=== PATIENT | male | born 1955 | race Hispanic/Latino ===

== ENCOUNTER 2017-03-14 05:04 | Inpatient (IN) | payer OTHER ==
[2017-03-14 05:38] LABS: BASO % 0.7 % (0.0-2.0); EOS # 0.3 K/uL (0.0-0.7); EOS % 4.1 % (0.0-4.0); LYMPH # 2.4 K/uL (1.0-4.3); LYMPH % 38.3 % (20.0-40.0); MEAN CELL VOLUME 95.3 fL (80.0-94.0); MEAN CORPUSCULAR HGB CONC 34.6 g/dL (33.0-37.0); MEAN PLATELET VOLUME 8.6 fL (7.2-11.7); MONO # 0.7 K/uL (0.0-0.8); MONO % 11.5 % (0.0-10.0); NRBC % 0.1 % (0.0-2.0); RED CELL DISTRIBUTION WIDTH 12.5 % (11.5-14.5); WHITE BLOOD COUNT 6.4 K/uL (4.8-10.8)
[2017-03-14] MEDS ORDERED: Aspirin 325 mg EC Tablets PO ONE (05:39)
[2017-03-14 05:49] LABS: CHLORIDE 95 mmol/L (98-107); POTASSIUM 3.4 mmol/L (3.6-5.2); SODIUM 132 mmol/L (132-148)
[2017-03-14 05:51] LABS: GFR AFRICAN-AMERICAN > 60
[2017-03-14 05:52] LABS: ALB/GLOB RATIO 1.1 (1.0-2.1); ALKALINE PHOSPHATASE 112 U/L (38-126); ALT/SGPT 97 U/L (21-72); AST/SGOT 44 U/L (17-59); BILIRUBIN,TOTAL 0.4 mg/dL (0.2-1.3); BLOOD UREA NITROGEN 23 mg/dL (9-20); CARBON DIOXIDE 26 mmol/L (22-30); GLUCOSE,RANDOM 133 mg/dL (75-110); TOTAL PROTEIN 8.6 g/dL (6.3-8.3)
[2017-03-14 05:53] LABS: CALCIUM 9.4 mg/dl (8.6-10.4)
--- NOTE | 2017-03-14 06:20 | C.PDOC ---
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 Patient states the episode lasted several seconds but notes for the past several weeks he has had an occasional, intermittent chest pressure sensation. Patient has a Hx of diabetes, HTN, and hyperlipidemia. He denies history of heart problems, and has never had stress test done. Time Seen by Provider: 03/14/17 05:11 Chief Complaint (Nursing): Chest Pain History Per: Patient History/Exam Limitations: no limitations Onset/Duration Of Symptoms: Mins Current Symptoms Are (Timing): Gone Severity: Moderate Quality: "Pain" Associated Symptoms: Dyspnea. denies: Nausea, Diaphoresis, Syncope Modifying Factors: None Exacerbating Factors: None Alleviating Factors: None Past Medical History Reviewed: Historical Data, Nursing Documentation, Vital Signs Vital Signs: Last Vital Signs Temp 98.3 F 03/14/17 23:40 Pulse 54 L 03/14/17 23:40 Resp 20 03/14/17 23:40 BP 120/72 03/14/17 23:40 Pulse Ox 96 03/14/17 23:40 - Medical History PMH: Diabetes, HTN, Hyperlipidemia Surgical History: No Surg Hx Family History: States: Unknown Family Hx - Social History Hx Tobacco Use: Yes Hx Alcohol Use: Yes Hx Substance Use: No - Immunization History Hx Influenza Vaccination: No Review Of Systems Except As Marked, All Systems Reviewed And Found Negative. Cardiovascular: Positive for: Chest Pain. Negative for: Palpitations Respiratory: Positive for: Shortness of Breath. Negative for: Cough Gastrointestinal: Negative for: Nausea, Vomiting, Abdominal Pain, Diarrhea Skin: Negative for: Rash Physical Exam - Physical Exam Appears: Well, Non-toxic, No Acute Distress Skin: Normal Color, Warm, Dry, No Rash Head: Normacephalic Oral Mucosa: Moist Neck: Supple Cardiovascular: Rhythm Regular Respiratory: Normal Breath Sounds, No Rales, No Rhonchi, No Wheezing Gastrointestinal/Abdominal: Normal Exam, Bowel Sounds, Soft, No Tenderness Extremity: Normal ROM, No Pedal Edema, No Calf Tenderness Pulses: Left Dorsalis Pedis: Normal, Right Dorsalis Pedis: Normal Neurological/Psych: Oriented x3 ED Course And Treatment - Laboratory Results Result Diagrams: 03/14/17 05:30 03/14/17 05:30 ECG: Interpreted By Me, Viewed By Me ECG Rhythm: Sinus Rhythm ECG Interpretation: No Acute Changes Interpretation Of ECG: Left axis deviation. No acute ST/T wave changes. Rate From EC (bpm) O2 Sat by Pulse Oximetry: 97 (Room air) Pulse Ox Interpretation: Normal - Radiology CXR: Interpreted by Me, Viewed By Me CXR Interpretation: Yes: No Acute Disease. No: Infiltrates Progress Note: Blood work, EKG, CXR ordered and reviewed. Patient given PO ASA 325mg. - Physician Consult Information Physician Contacted: Hortensia Guido Outcome Of Conversation: Discussed patient with Dr. Guido (admits for Dr. Leblanc) , who agrees with telemetry observation for chest pain r/o ACS. Disposition - Disposition Disposition: HOSPITALIZED Disposition Time: 06:34 Condition: STABLE - Clinical Impression Clinical Impression: Chest pain - Scribe Statement The provider has reviewed the documentation as recorded by the Scribe Braeden Carr All medical record entries made by the Scribe were at my direction and personally dictated by me. I have reviewed the chart and agree that the record accurately reflects my personal performance of the history, physical exam, medical decision making, and the department course for this patient. I have also personally directed, reviewed, and agree with the discharge instructions and disposition. Decision To Admit - Pt Status Changed To: Hospital Disposition Of: Observation - . Bed Request Type: Telemetry Admitting Physician: Hortensia Guido Patient Diagnosis: Chest pain
[2017-03-14 06:37] LABS: INR 0.9
--- NOTE | 2017-03-14 07:28 | RAD ---
PROCEDURE: CHEST RADIOGRAPH, 1 VIEW HISTORY: cp COMPARISON: None available. FINDINGS: LUNGS: No acute infiltrate bilaterally. Inspiratory volume appears somewhat low. PLEURA: No pneumothorax or pleural fluid seen. CARDIOVASCULAR: Normal. OSSEOUS STRUCTURES: No significant abnormalities. VISUALIZED UPPER ABDOMEN: Normal. OTHER FINDINGS: None. IMPRESSION: No acute infiltrate, pleural effusion or definite cardiomegaly. No pulmonary vascular derangement. Inspiratory volume appears low.
[2017-03-14] MEDS: (Novolin R) Insulin Human Regular 100 units/ml vial SC SCH ×4 (07:47→22:00)
[2017-03-14] MEDS ORDERED: AMLODIPINE BESYLATE 5 MG PO SCH (10:00)
[2017-03-14] MEDS ORDERED: Home Med 1 UNIT (Aspirin [Aspirin] 81 MG) PO SCH (10:00)
[2017-03-14] MEDS ORDERED: Enoxaparin 30 mg Syringe SC SCH (10:00)
[2017-03-14] MEDS ORDERED: HYDROCHLOROTHIAZIDE PO SCH (10:00)
[2017-03-14] MEDS ORDERED: LISINOPRIL PO SCH (10:00)
--- NOTE | 2017-03-14 14:03 | CP.PCM.HP ---
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 Patient states the episode lasted several seconds but notes for the past several weeks he has had an occasional chest pressure sensation. Patient reports he has a Hx of diabetes, HTN, and hyperlipidemia. PAST HIST. HTN/T2DM PERSONAL HIST: Smoking. N Alcohol. N Allergy N Travel_- . FAMILY HIST : ROS : Constitutional: Negative for weight change, chills, night sweats, fatigue and usage of assist device. Eyes: Negative for redness, swelling, itching, discharge, vision changes, blurry vision, double vision, glaucoma, cataracts, Ears: Negative for hearing loss, ringing, , tinnitus, vertigo Nose: Negative for rhinorrhea, stuffiness, sniffing, itching, postnasal drip, discoloration, nasal congestion and epistaxis. Throat: Negative for throat clearing, sore throat, hoarseness, difficulty swallowing and difficulty speaking. Respiratory: Negative for cough, , sputum production, chest tightness, wheezing, pleuritic chest pain ,daytime somnolence, chronic cough, hemoptysis, snoring at night, Cardiovascular: Negative for, PND, Edema of legs, leg cramps, angina, claudication, , irregular heartbeat, Neurology: Negative for irritability, muscle weakness, numbness and tingling, seizures, tremors, migraines, slurred speech, syncope, memory loss, mood changes , recurrent headaches Gastrointestinal: Negative for difficulty swallowing, diarrhea, constipation, black stools, rectal bleeding, nausea, flatulence, reflux, poor appetite, changes in bowel habits, abdominal pain Genitourinary: Negative for frequent urination, hematuria, discharge, incontinence, urinary retention, frequent UTI, Psychiatric: Negative for depression, anxiety/panic, suicidal tendencies, Musculoskeletal: Negative for swollen joints, back pain, , neck pain, morning stiffness of joints, . Skin: Negative for rash, ulcers, itching, dry skin and pigmented lesions. P/E: Constitutional: Appears stated age and in no apparent distress. Head: Normocephalic. Ears: External ear canals patent without inflammation. Tympanic membranes intact with normal light reflex and landmark. Eyes: Pupils are central, bilaterally equal, symmetrical and reacts to light with normal movements and no icterus or pallor. Nose: External nares are patent. Mucosa is pink Mouth-Throat: Good general appearance and condition. No post-pharyngeal/oropharyngeal erythema and tonsillar hypertrophy. Good dental hygiene. Neck-Lymphatic: Neck is supple with normal ROM, no thyromegaly, lymph nodes or masses. JVD is normal with no carotid bruit. Lungs: Clear to percussion and auscultation with bilateral normal air entry. Cardiovascular: S1 and S2 are normal with no murmurs, gallops and rub. GI Exam: No hepatomegaly. Abdomen is soft and non-tender. No Organomegaly , masses or hernias are evident and bowel sounds are normal and active. Neurology: Higher function and all cranial nerves intact, with no gross motor or sensory deficit. Superficial and deep reflexes are normal with downwards planters. No cerebellar deficit with normal gait. Musculoskeletal: No tender spots with normal curvature of the spine with no swelling or restricted ROM of the small and large joints. Extremities: Homans sign absent. Intact pulses with no pitting edema, calf tenderness or skin color changes. Skin: No rash, eruptions or abnormal skin pigmentation LAB/RADIOLOGY: ASSESMENT : ACUTE CORONARY SYNDROME T2DM HYPERCHOLESTEROL PLAN: WILL D/W PT CARDIAC CATH DUE TO HIGH RISK FACTORS Present on Admission - Present on Admission Any Indicators Present on Admission: No Past Patient History - Past Medical History & Family History Past Medical History?: Yes - Past Social History Smoking Status: Former Smoker - CARDIAC Hx Cardiac Disorders: Yes Hx Hypertension: Yes - PULMONARY Hx Respiratory Disorders: No - NEUROLOGICAL Hx Neurological Disorder: No - HEENT Hx HEENT Problems: No - RENAL Hx Chronic Kidney Disease: No - ENDOCRINE/METABOLIC Hx Endocrine Disorders: Yes Hx Diabetes Mellitus Type 2: Yes - HEMATOLOGICAL/ONCOLOGICAL Hx Blood Disorders: No - INTEGUMENTARY Hx Dermatological Problems: No - MUSCULOSKELETAL/RHEUMATOLOGICAL Hx Musculoskeletal Disorders: No Hx Falls: No - GASTROINTESTINAL Hx Gastrointestinal Disorders: No - GENITOURINARY/GYNECOLOGICAL Hx Genitourinary Disorders: No - PSYCHIATRIC Hx Psychophysiologic Disorder: No Hx Substance Use: No - SURGICAL HISTORY Hx Surgeries: No - ANESTHESIA Hx Anesthesia: No Has any member of the family had a problem w/ anesthesia?: No Meds Allergies/Adverse Reactions: Allergies Allergy/AdvReac Type Severity Reaction Status Date / Time No Known Allergies Allergy Verified 03/14/17 05:16 Results - Vital Signs Recent Vital Signs: Last Vital Signs Temp 98.5 F 03/14/17 07:55 Pulse 66 03/14/17 07:55 Resp 18 03/14/17 07:55 BP 126/79 03/14/17 07:55 Pulse Ox 98 03/14/17 07:55 - Labs Result Diagrams: 03/14/17 05:30 03/14/17 05:30 Labs: Laboratory Results - last 24 hr 03/14/17 03/14/17 03/14/17 05:30 05:30 05:30 WBC 6.4 RBC 4.51 Hgb 14.9 Hct 43.0 MCV 95.3 H MCH 33.0 H MCHC 34.6 RDW 12.5 Plt Count 179 MPV 8.6 Neut % (Auto) 45.4 L Lymph % (Auto) 38.3 [place] % (Auto) 11.5 H Eos % (Auto) 4.1 H Baso % (Auto) 0.7 Neut # 2.9 Lymph # 2.4 [place] # 0.7 Eos # 0.3 Baso # 0.0 PT 10.1 INR 0.9 APTT 27 Sodium 132 Potassium 3.4 L Chloride 95 L Carbon Dioxide 26 Anion Gap 14 BUN 23 H Creatinine 1.0 Est GFR ( Amer) > 60 Est GFR (Non-Af Amer) > 60 POC Glucose (mg/dL) Random Glucose 133 H Calcium 9.4 Total Bilirubin 0.4 AST 44 ALT 97 H Alkaline Phosphatase 112 Total Creatine Kinase 105 CK-MB (Mass) 2.04 Troponin I < 0.0120 NT-Pro-B Natriuret Pep 73.0 Total Protein 8.6 H Albumin 4.5 Globulin 4.1 H Albumin/Globulin Ratio 1.1 03/14/17 03/14/17 07:47 11:46 WBC RBC Hgb Hct MCV MCH MCHC RDW Plt Count MPV Neut % (Auto) Lymph % (Auto) [place] % (Auto) Eos % (Auto) Baso % (Auto) Neut # Lymph # [place] # Eos # Baso # PT INR APTT Sodium Potassium Chloride Carbon Dioxide Anion Gap BUN Creatinine Est GFR ( Amer) Est GFR (Non-Af Amer) POC Glucose (mg/dL) 148 H 125 H Random Glucose Calcium Total Bilirubin AST ALT Alkaline Phosphatase Total Creatine Kinase CK-MB (Mass) Troponin I NT-Pro-B Natriuret Pep Total Protein Albumin Globulin Albumin/Globulin Ratio
[2017-03-15] MEDS: (Novolin R) Insulin Human Regular 100 units/ml vial SC SCH ×3 (08:17→16:17)
[2017-03-15] MEDS ORDERED: Enoxaparin 40 mg Syringe SC SCH (10:00)
[2017-03-15] MEDS ORDERED: Pneumococcal 23-Valent Vaccine IM ONE (12:00)
--- NOTE | 2017-03-15 13:47 | CP.PCM.DIS ---
Provider - Provider Date of Admission: 03/14/17 06:40 Attending physician: Hortensia Guido MD Time Spent in preparation of Discharge (in minutes): 35 Hospital Course - Lab Results Lab Results: Most Recent Lab Values WBC 6.4 K/uL (4.8-10.8) 03/14/17 05:30 RBC 4.51 Mil/uL (4.40-5.90) 03/14/17 05:30 Hgb 14.9 g/dL (12.0-18.0) 03/14/17 05:30 Hct 43.0 % (35.0-51.0) 03/14/17 05:30 MCV 95.3 fL (80.0-94.0) H 03/14/17 05:30 MCH 33.0 pg (27.0-31.0) H 03/14/17 05:30 MCHC 34.6 g/dL (33.0-37.0) 03/14/17 05:30 RDW 12.5 % (11.5-14.5) 03/14/17 05:30 Plt Count 179 K/uL (130-400) 03/14/17 05:30 MPV 8.6 fL (7.2-11.7) 03/14/17 05:30 Neut % (Auto) 45.4 % (50.0-75.0) L 03/14/17 05:30 Lymph % (Auto) 38.3 % (20.0-40.0) 03/14/17 05:30 [place] % (Auto) 11.5 % (0.0-10.0) H 03/14/17 05:30 Eos % (Auto) 4.1 % (0.0-4.0) H 03/14/17 05:30 Baso % (Auto) 0.7 % (0.0-2.0) 03/14/17 05:30 Neut # 2.9 K/uL (1.8-7.0) 03/14/17 05:30 Lymph # 2.4 K/uL (1.0-4.3) 03/14/17 05:30 [place] # 0.7 K/uL (0.0-0.8) 03/14/17 05:30 Eos # 0.3 K/uL (0.0-0.7) 03/14/17 05:30 Baso # 0.0 K/uL (0.0-0.2) 03/14/17 05:30 PT 10.1 SECONDS (9.7-12.2) 03/14/17 05:30 INR 0.9 03/14/17 05:30 APTT 27 SECONDS (21-34) 03/14/17 05:30 Sodium 132 mmol/L (132-148) 03/14/17 05:30 Potassium 3.4 mmol/L (3.6-5.2) L 03/14/17 05:30 Chloride 95 mmol/L (98-107) L 03/14/17 05:30 Carbon Dioxide 26 mmol/L (22-30) 03/14/17 05:30 Anion Gap 14 (10-20) 03/14/17 05:30 BUN 23 mg/dL (9-20) H 03/14/17 05:30 Creatinine 1.0 mg/dL (0.8-1.5) 03/14/17 05:30 Est GFR ( Amer) > 60 03/14/17 05:30 Est GFR (Non-Af Amer) > 60 03/14/17 05:30 POC Glucose (mg/dL) 150 mg/dL (65-110) H 03/15/17 11:24 Random Glucose 133 mg/dL (75-110) H 03/14/17 05:30 Calcium 9.4 mg/dl (8.6-10.4) 03/14/17 05:30 Total Bilirubin 0.4 mg/dL (0.2-1.3) 03/14/17 05:30 AST 44 U/L (17-59) 03/14/17 05:30 ALT 97 U/L (21-72) H 03/14/17 05:30 Alkaline Phosphatase 112 U/L (38-126) 03/14/17 05:30 Total Creatine Kinase 72 U/L (55-170) 03/15/17 06:58 CK-MB (Mass) 1.01 ng/mL (0.0-3.38) 03/15/17 06:58 Troponin I < 0.0120 ng/mL (0.00-0.120) 03/14/17 05:30 Troponin I, Quant < 0.0120 ng/mL (0.00-0.120) 03/15/17 06:58 NT-Pro-B Natriuret Pep 73.0 pg/mL (0-900) 03/14/17 05:30 Total Protein 8.6 g/dL (6.3-8.3) H 03/14/17 05:30 Albumin 4.5 g/dL (3.5-5.0) 03/14/17 05:30 Globulin 4.1 gm/dL (2.2-3.9) H 03/14/17 05:30 Albumin/Globulin Ratio 1.1 (1.0-2.1) 03/14/17 05:30 - Hospital Course Hospital Course: 61 year old male presents to the ER with a complaint of chest pain that 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 Patient states the episode lasted several seconds but notes for the past several weeks he has had an occasional chest pressure sensation. Patient reports he has a Hx of diabetes, HTN, and hyperlipidemia. ALL TNIS WERE NEG NO EKG CHANGES PT DECLINED CARIAC CATH PT WILL BE SCHEDULED FOR IV LEXISCAN Discharge Plan - Follow Up Plan Condition: STABLE Disposition: HOME/ ROUTINE
[2017-03-15 15:59] VITALS: BP 114/74; PULSE 57; RESP 20; TEMP 98.2; O2SAT 95
--- NOTE | 2017-03-15 17:31 | CP.PCM.PN ---
Subjective - Date & Time of Evaluation Date of Evaluation: 03/15/17 Time of Evaluation: 17:29 - Subjective Subjective: PT SEEN AND EXAMINED TODAY, RESP EASY AND UNLABORED, NAD., DENIES ANY CP, SOB, PALPITATION. Objective - Vital Signs/Intake and Output Vital Signs (last 24 hours): Temp Pulse Resp BP Pulse Ox 98.2 F 57 L 20 114/74 95 03/15/17 15:58 03/15/17 15:58 03/15/17 15:58 03/15/17 15:58 03/15/17 15:58 Intake and Output: 03/15/17 03/15/17 06:59 18:59 Intake Total 480 Balance 480 - Medications Medications: Current Medications Amlodipine Besylate (Norvasc) 5 mg PO DAILY [facility] Last Admin: 03/15/17 09:26 Dose: 5 mg Aspirin (Ecotrin) 81 mg PO DAILY [facility] Last Admin: 03/15/17 09:25 Dose: 81 mg Atenolol (Tenormin) 50 mg PO DAILY [facility] Last Admin: 03/15/17 09:26 Dose: 50 mg Enoxaparin Sodium (Lovenox) 40 mg SC DAILY [facility] Last Admin: 03/15/17 09:28 Dose: Not Given Hydrochlorothiazide (Microzide) 12.5 mg PO DAILY [facility] Last Admin: 03/15/17 09:25 Dose: 12.5 mg Insulin Human Regular (Novolin R) 0 unit SC [facility] PRN Reason: Protocol Last Admin: 03/15/17 16:17 Dose: Not Given Lisinopril (Zestril) 20 mg PO DAILY [facility] Last Admin: 03/15/17 09:25 Dose: 20 mg Metformin HCl (Glucophage Xr) 500 mg PO DAILY [facility] Last Admin: 03/15/17 09:26 Dose: 500 mg - Labs Labs: 03/14/17 05:30 03/14/17 05:30 PT 10.1 SECONDS (9.7-12.2) 03/14/17 05:30 INR 0.9 03/14/17 05:30 APTT 27 SECONDS (21-34) 03/14/17 05:30 Assessment and Plan - Assessment and Plan (Free Text) Plan: 61 Y/O MALE ADMITTED FOR CP, MILD SOB TROP NEG, NO EKG CHANGES PT REFUSED CARDIAC CATH, OUTPT IV LEXISCAN AAOX3, DENIES ANY CP, SOB AT PRESENT F/U WITH DR GAINES IN THE OFFICE RETURN TO ER FOR WORSENING S/S AGREE, VERBALIZE UNDERSTANDING
[2017-03-17] MEDS ORDERED: Influenza Vaccine 60 mcg/0.5 mL SYR (4YR UP) IM ONE (10:00)
== END 2017-03-15 18:11 | disposition home or self-care (01) | DRG 311 ==
LOC: C.ER 05:04 → C.6T 06:34 → OBSVTOIN 06:40
PROVIDERS: ADMIT Internal Medicine Cardiovascular Disease; ATTEND Internal Medicine Cardiovascular Disease
DX: I20.0 Unstable angina (principal); I10 Essential (primary) hypertension; E11.9 Type 2 diabetes mellitus without complications; E78.5 Hyperlipidemia, unspecified; Z79.4 Long term (current) use of insulin; F17.210 Nicotine dependence, cigarettes, uncomplicated

== ENCOUNTER 2018-02-19 19:48 | Emergency (ER) | payer OTHER ==
[2018-02-19 20:10] VITALS: BP 134/82; PULSE 82; RESP 18; TEMP 98.5; O2SAT 99
[2018-02-19] MEDS ORDERED: Tetanus/Diphtheria Toxoids 0.5 ml Syringe IM ONE (20:52)
--- NOTE | 2018-02-19 20:55 | C.PDOC ---
History Of Present Illness 62 yo male w/PMHx of CAD, NIDDM, come in for evaluation of Left index finger pain, swelling, redness gradually developed for past week " after had wooden splinter in my finger". Otherwise, pt denies fever, chills, obvious deformity, weakness, sensory or vascular deficits to Left index, denies open wound or discharges. Ambulate to Ed for evaluation, not in any apparent distress. Time Seen by Provider: 02/19/18 20:13 Chief Complaint (Nursing): Abnormal Skin Integrity History Per: Patient Past Medical History Reviewed: Historical Data, Nursing Documentation, Vital Signs Vital Signs: Last Vital Signs Temp 98.5 F 02/19/18 20:04 Pulse 82 02/19/18 20:04 Resp 18 02/19/18 20:04 BP 134/82 02/19/18 20:04 Pulse Ox 99 02/19/18 20:04 - Medical History PMH: Diabetes, HTN, Hyperlipidemia Denies: Chronic Kidney Disease Family History: States: Unknown Family Hx - Social History Hx Tobacco Use: Yes Hx Alcohol Use: Yes Hx Substance Use: No - Immunization History Hx Tetanus Toxoid Vaccination: No Hx Influenza Vaccination: No Review Of Systems Except As Marked, All Systems Reviewed And Found Negative. Constitutional: Negative for: Fever, Chills Musculoskeletal: Positive for: Other (left index pain) Skin: Positive for: Lesions Neurological: Negative for: Weakness, Numbness Physical Exam - Physical Exam Appears: Well, Non-toxic, No Acute Distress Skin: Normal Color, Warm, Other (Left index finger diffuse erythema over distal phalanx with mild tenderness around nail area. NO flactulance, no felon, no proximal streaking.) Head: Normacephalic Eye(s): bilateral: PERRL Extremity: Normal ROM (Left hand), Tenderness (mild over left 2nd distal phalanx), Capillary Refill (less preciado 2sec to left index), No Deformity Pulses: Left Radial: Normal Neurological/Psych: Oriented x3, Normal Speech, Normal Motor, Normal Sensation, Normal Reflexes ED Course And Treatment O2 Sat by Pulse Oximetry: 99 Pulse Ox Interpretation: Normal - Other Rad Left nidex X-Ray: Interpreted by Me, Viewed By Me Interpretation: (-) acute fx, (-) FB Progress Note: On re-eval, pt is afebrile, hemodynamicaly stable. non-toxic. left hand: mild tenderness, edema and eyrthema over left 2nd distal phalanx with early paronychia. No flactulance, no proximal streaking, no felon.FAROM of Left index finger, no neurovascular deficits. Xray of left index review (-) acute fx or FB. tetanus IM, oral abx given. FSBS 126. pt advised on course of ds. ref. to F/u with PMD in 2 days for re-eavl. return to Ed if any worsening or new changes. Disposition Counseled Patient/Family Regarding: Studies Performed, Diagnosis, Need For Followup, Rx Given - Disposition Referrals: Joce Leblanc MD [Primary Care Provider] - Disposition: HOME/ ROUTINE Disposition Time: 20:59 Condition: STABLE Additional Instructions: Warm salty water finger soaks 2 times daily for 5-10 minutes take antibiotic as prescribe Follow up with PMD in 2 days for re-evaluation. Return to ED if any worsening or new changes. Prescriptions: Doxycycline Hyclate [Doryx] 100 mg PO BID #14 cap Instructions: Paronychia Forms: [employer] (Sami) Print Language: LAO - Clinical Impression Clinical Impression: Paronychia
[2018-02-19] MEDS ORDERED: Tdap Vaccine 0.5 ml Vial (10-64 yrs) IM ONE (20:58)
--- NOTE | 2018-02-20 10:23 | RAD ---
Date of service: Is 02/19/2018 PROCEDURE: Left Index finger radiographs. HISTORY: injury COMPARISON: None. TECHNIQUE: AP radiograph of the left hand, as well as spot oblique and lateral images of index finger were obtained. FINDINGS: LEFT INDEX FINGER: Normal left index finger, without fracture or focal lesion. Remainder of the left hand (as seen on the AP view) grossly intact. JOINTS: Normal. SOFT TISSUES: Normal. OTHER FINDINGS: None. IMPRESSION: Normal left index finger radiographs.
== END 2018-02-19 21:24 | disposition home or self-care (01) ==
LOC: C.ER 19:48 → SUPCPDRO 19:48 → C.ER 21:24
DX: L03.012 Cellulitis of left finger (principal)

== ENCOUNTER 2018-04-25 08:14 | Emergency (ER) | payer OTHER ==
--- NOTE | 2018-04-25 08:49 | C.PDOC ---
History Of Present Illness 62 y/o male with a PMHx of HTN, DM, presents to the ED complaining of right flank pain for 1 week. Pain is described as achey, intermittent, non-radiating, worse with movement. States that last week he had a few episodes of dysuria with hematuria last week. Believes he may have passed a kidney stone. No urinary symptoms or pain today. 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 He is tolerating PO and having BM per baseline. Denies fevers, chills, abdominal pain, nausea, vomiting, diarrhea, chest pain, SOB, incontinence, saddles anesthesia, or any other associated symptoms. Time Seen by Provider: 04/25/18 08:35 Chief Complaint (Nursing): Male Genitourinary History Per: Patient History/Exam Limitations: no limitations Onset/Duration Of Symptoms: Days Current Symptoms Are (Timing): Still Present Quality Of Discomfort: "Pain" Associated Symptoms: Urinary Symptoms Past Medical History Reviewed: Historical Data, Nursing Documentation, Vital Signs Vital Signs: Last Vital Signs Temp 98.2 F 04/25/18 08:20 Pulse 78 04/25/18 08:20 Resp 19 04/25/18 08:20 BP 132/75 04/25/18 08:20 Pulse Ox 97 04/25/18 08:20 - Medical History PMH: Diabetes, HTN, Hyperlipidemia Denies: Chronic Kidney Disease Family History: States: Unknown Family Hx - Social History Hx Tobacco Use: Yes Hx Alcohol Use: No Hx Substance Use: No - Immunization History Hx Tetanus Toxoid Vaccination: Yes Hx Influenza Vaccination: No Hx Pneumococcal Vaccination: No Review Of Systems Except As Marked, All Systems Reviewed And Found Negative. Constitutional: Negative for: Fever, Chills Eyes: Negative for: Vision Change Cardiovascular: Negative for: Chest Pain, Palpitations, Light Headedness Respiratory: Negative for: Cough, Shortness of Breath Gastrointestinal: Negative for: Nausea, Vomiting, Abdominal Pain, Diarrhea Genitourinary: Positive for: Dysuria (now resolved), Hematuria (now resolved). Negative for: Incontinence Musculoskeletal: Positive for: Other (Right flank pain). Negative for: Neck Pain, Shoulder Pain Skin: Negative for: Rash Neurological: Negative for: Weakness, Numbness, Seizures, Headache, Dizziness Physical Exam - Physical Exam Appears: Well, Non-toxic, No Acute Distress Skin: Normal Color, Warm, Dry Head: Atraumatic, Normacephalic Eye(s): bilateral: Normal Inspection, PERRL, EOMI Ear(s): Bilateral: Normal Nose: Normal Oral Mucosa: Moist Throat: Normal Neck: Normal, Normal ROM, Supple Lymphatic: Adenopathy Chest: Symmetrical, No Tenderness Cardiovascular: Rhythm Regular, No Murmur Respiratory: Normal Breath Sounds, No Accessory Muscle Use Gastrointestinal/Abdominal: Normal Exam, Bowel Sounds (normoactive), Soft, No Tenderness, No Distention, No Guarding, No Rebound, Other (No flank tenderness) Back: Normal Inspection, No CVA Tenderness, No Vertebral Tenderness, No Paraspinal Tenderness Extremity: Normal ROM, Capillary Refill (<2s) Extremity: Bilateral: Atraumatic, No Pedal Edema, Normal Color And Temperature, Normal ROM Pulses: Left Radial: Normal, Right Radial: Normal, Left Dorsalis Pedis: Normal, Right Dorsalis Pedis: Normal Neurological/Psych: Oriented x3, Normal Speech, Normal Cognition, Normal Motor, Normal Sensation Gait: Steady ED Course And Treatment - Laboratory Results Result Diagrams: 04/25/18 09:10 04/25/18 09:10 O2 Sat by Pulse Oximetry: 97 (RA) Pulse Ox Interpretation: Normal - CT Scan/US CT Abd/Pelvis Other Rad Studies (CT/US): Read By Radiologist, Radiology Report Reviewed CT/US Interpretation: Accession No. : [id number]. Patient Name / ID : MARTA HERNDON / [id number]. Exam Date : 04/25/2018 09:06:34 ( Approved ). Study Comment : Sex / Age : M / 62Y. Creator : Kristian Shields. Dictator : Angelica Murguia MD. Floor Hand : Custodian Supervisor : Angelica Murguia MD. Approver2 : Report Date : 04/25/2018 09:28:33. My Comment : . PROCEDURE: CT Abdomen and Pelvis without Oral or IV contrast. HISTORY: right flank pain, stone search. COMPARISON: None available. TECHNIQUE: Contiguous axial images of the abdomen and pelvis. No oral or IV contrast administered. Coronal and Sagittal reformats generated and reviewed. Radiation dose: Total exam DLP = 1247.62 mGy-cm. This CT exam was performed using one or more of the following dose reduction techniques: Automated exposure control, adjustment of the mA and/or kV according to patient size, and/or use of iterative reconstruction technique. FINDINGS: There is limited evaluation of the solid organs without the administration of IV con trast. LOWER THORAX: No visible consolidation, pleural effusion, or pneumothorax. LIVER: Unremarkable. GALLBLADDER AND BILE DUCTS: Unremarkable. PANCREAS: Unremarkable. SPLEEN: 11 mm splenule. Otherwise unremarkable. ADRENALS: Unremarkable. KIDNEYS AND URETERS: Horseshoe kidney, anatomic variant. No obstructing calculus or hydronephrosis evident. BLADDER: Thick- walled under distended urinary bladder. REPRODUCTIVE: Prostate gland measures approximately 3.3 x 4.2 cm. APPENDIX: The appendix appears within normal limits of caliber. No secondary signs of acute appendicitis. BOWEL: The stomach is nondistended. Lack of oral contrast limits evaluation for bowel pathology. The bowel loops appear within normal limits of caliber without evidence of intestinal obstruction. Scattered noninflamed diverticula. PERITONEUM: No significant free fluid. No definite free air. LYMPH NODES: No bulky lymphadenopathy identified. VASCULATURE: Dense atherosclerotic calcifications. No aortic aneurysm. BONES: No acute osseous abnormality is detected. OTHER FINDINGS: None. IMPRESSION: Horseshoe kidney, anatomic variant. No obstructing calculus or hydronephrosis identified. Mildly thick- walled under distended urinary bladder. Recommend correlation with urinalysis. Scattered noninflamed diverticula. The appendix appears within normal limits of caliber. No secondary signs of acute appendicitis. Medical Decision Making Medical Decision Making: Impression: Right flank pain, r/o renal colic Initial Plan: --CMP --Lipase --CBC --UA --Urine culture --IV fluids --Pending CT Abd/Pelvis Labs reviewed, dehydration. IVF ordered. CT is negative for acute pathology. Patient continues to deny pain or urinary symptoms. Resting comfortably in stretcher, ready for discharge home. Will recommend urology followup. Diagnostic testing results and plan of care discussed with patient, and strict instructions given regarding prescriptions, importance of follow up, and signs to return to Emergency Department, to include worsening pain, fever, chills, or any other new/worsening symptoms. Patient verbalizes understanding of discussion. Patient A&Ox3, ambulating with steady gait, stable for discharge home. Disposition - Disposition Referrals: Jeremy Mata Jr., MD [Staff Provider] - Disposition: HOME/ ROUTINE Disposition Time: 12:00 Condition: GOOD Additional Instructions: Naproxen daily for pain as needed; take with food Lidoderm patch, 12 hours on, 12 hours off Followup with primary doctor within 2 days Followup with urology within 2 days Return to ER for any new/worsening symptoms Prescriptions: Lidocaine 5% [Lidoderm] 1 ea TD Q12H PRN #10 patch PRN Reason: Pain, Mild (1-3) Naproxen [Naprosyn] 500 mg PO DAILY PRN #14 tablet PRN Reason: Pain, Moderate (4-7) Instructions: Low Back Pain in Adults Forms: General Discharge Instructions, [facility] (Ind[place]ian), Work Excuse - Clinical Impression Clinical Impression: Flank pain - PA / YARDING SUPERVISOR / Resident Statement MD/DO has reviewed & agrees with the documentation as recorded. - Scribe Statement The provider has reviewed the documentation as recorded by the Garrettibcathy Ríos All medical record entries made by the Sylvester were at my direction and personally dictated by me. I have reviewed the chart and agree that the record accurately reflects my personal performance of the history, physical exam, medical decision making, and the department course for this patient. I have also personally directed, reviewed, and agree with the discharge instructions and disposition.
[2018-04-25 09:16] LABS: SQUAMOUS EPITHIAL < 1 /hpf (0-5); URINE BILIRUBIN NEGATIVE (NEGATIVE); URINE BLOOD NEGATIVE (NEGATIVE); URINE CLARITY Clear (Clear); URINE COLOR Yellow (YELLOW); URINE GLUCOSE (UA) NORMAL (Normal); URINE HYALINE CAST 0-2 /lpf (0-2); URINE LEUKOCYTE ESTERASE NEG Leu/uL (Negative); URINE PROTEIN NEGATIVE (NEGATIVE); URINE UROBILINOGEN NORMAL mg/dL (0.2-1.0)
[2018-04-25 09:46] LABS: BASO # 0.1 K/uL (0.0-0.2); BASO % 0.8 % (0.0-2.0); EOS # 0.2 K/uL (0.0-0.7); EOS % 2.9 % (0.0-4.0); HEMOGLOBIN 13.5 g/dL (12.0-18.0); LYMPH # 1.8 K/uL (1.0-4.3); LYMPH % 23.3 % (20.0-40.0); MEAN CELL VOLUME 96.1 fL (80.0-94.0); MEAN CORPUSCULAR HEMOGLOBIN 32.9 pg (27.0-31.0); MEAN CORPUSCULAR HGB CONC 34.3 g/dL (33.0-37.0); MEAN PLATELET VOLUME 8.4 fL (7.2-11.7); MONO # 0.8 K/uL (0.0-0.8); MONO % 10.8 % (0.0-10.0); NEUT # 4.7 K/uL (1.8-7.0); NEUT % 62.2 % (50.0-75.0); RBC 4.09 Mil/uL (4.40-5.90); WHITE BLOOD COUNT 7.6 K/uL (4.8-10.8)
[2018-04-25 10:08] LABS: ALB/GLOB RATIO 1.6 (1.0-2.1); ALBUMIN 4.4 g/dL (3.5-5.0); ALT/SGPT 36 U/L (21-72); AST/SGOT 34 U/L (17-59); BLOOD UREA NITROGEN 24 mg/dL (9-20); CALCIUM 9.1 mg/dl (8.6-10.4); GFR NON-AFRICAN AMERICAN > 60
[2018-04-25 10:21] LABS: LIPASE 52 U/L (23-300)
[2018-04-25] MEDS ORDERED: Sodium Chloride 0.9% 1,000 ML IV ONE (10:28)
[2018-04-25] MEDS ORDERED: Sodium Chloride 0.9% 1,000 ML ONE (10:44)
--- NOTE | 2018-04-25 11:15 | CT ---
PROCEDURE: CT Abdomen and Pelvis without Oral or IV contrast. HISTORY: right flank pain, stone search COMPARISON: None available TECHNIQUE: Contiguous axial images of the abdomen and pelvis. No oral or IV contrast administered. Coronal and Sagittal reformats generated and reviewed. Radiation dose: Total exam DLP = 1247.62 mGy-cm. This CT exam was performed using one or more of the following dose reduction techniques: Automated exposure control, adjustment of the mA and/or kV according to patient size, and/or use of iterative reconstruction technique. FINDINGS: There is limited evaluation of the solid organs without the administration of IV contrast. LOWER THORAX: No visible consolidation, pleural effusion, or pneumothorax. LIVER: Unremarkable. GALLBLADDER AND BILE DUCTS: Unremarkable. PANCREAS: Unremarkable. SPLEEN: 11 mm splenule. Otherwise unremarkable. ADRENALS: Unremarkable. KIDNEYS AND URETERS: Horseshoe kidney, anatomic variant. No obstructing calculus or hydronephrosis evident. BLADDER: Thick-walled under distended urinary bladder. REPRODUCTIVE: Prostate gland measures approximately 3.3 x 4.2 cm. APPENDIX: The appendix appears within normal limits of caliber. No secondary signs of acute appendicitis. BOWEL: The stomach is nondistended. Lack of oral contrast limits evaluation for bowel pathology. The bowel loops appear within normal limits of caliber without evidence of intestinal obstruction. Scattered noninflamed diverticula. PERITONEUM: No significant free fluid. No definite free air. LYMPH NODES: No bulky lymphadenopathy identified. VASCULATURE: Dense atherosclerotic calcifications. No aortic aneurysm. BONES: No acute osseous abnormality is detected. OTHER FINDINGS: None. IMPRESSION: Horseshoe kidney, anatomic variant. No obstructing calculus or hydronephrosis identified. Mildly thick-walled under distended urinary bladder. Recommend correlation with urinalysis. Scattered noninflamed diverticula. The appendix appears within normal limits of caliber. No secondary signs of acute appendicitis.
[2018-04-25] MEDS ORDERED: Lidocaine 5% Patch TD STA (11:59)
[2018-04-25] MEDS ORDERED: Lidocaine 5% Patch TD ONE (12:11)
[2018-04-25 12:33] VITALS: BP 121/74; PULSE 60; RESP 18; TEMP 98.4
[2018-04-26 13:40] VITALS: O2SAT 97
== END 2018-04-25 12:31 | disposition home or self-care (01) ==
LOC: C.ER 08:14
DX: R10.9 Unspecified abdominal pain (principal)
CPT/HCPCS: 74176; 80053; 81001; 83690; 85025; 87086; 99285; J7030

== ENCOUNTER 2018-06-01 03:11 | Emergency (ER) | payer OTHER ==
[2018-06-01 03:28] VITALS: RESP 16
--- NOTE | 2018-06-01 03:42 | C.PDOC ---
History Of Present Illness 63 year old male presents to the ER with a complaint of left knee pain and swelling for the past few months.. Denies injury. <Tyrone King R - Last Filed: 06/01/18 06:26> History Per: Patient History/Exam Limitations: no limitations Onset/Duration Of Symptoms: Days Current Symptoms Are (Timing): Still Present Recent travel outside of the [place]: No <Tyrone King R - Last Filed: 06/01/18 06:26> <Dylon Camarena V - Last Filed: 06/01/18 16:03> Chief Complaint (Nursing): Lower Extremity Problem/Injury Past Medical History Reviewed: Historical Data, Nursing Documentation, Vital Signs Vital Signs: Last Vital Signs Temp 98.6 F 06/01/18 03:21 Pulse 93 H 06/01/18 03:21 Resp 16 06/01/18 03:21 BP 130/72 06/01/18 03:21 Pulse Ox 97 06/01/18 03:21 - Medical History PMH: Diabetes, HTN, Hyperlipidemia Denies: Chronic Kidney Disease Family History: States: Unknown Family Hx - Social History Hx Tobacco Use: Yes Hx Alcohol Use: No Hx Substance Use: No - Immunization History Hx Tetanus Toxoid Vaccination: Yes Hx Influenza Vaccination: No Hx Pneumococcal Vaccination: No <Tyrone King R - Last Filed: 06/01/18 06:26> Vital Signs: Last Vital Signs Temp 99.0 F 06/01/18 07:02 Pulse 81 06/01/18 07:02 Resp 16 06/01/18 07:02 BP 115/72 06/01/18 07:02 Pulse Ox 96 06/01/18 07:02 <Dylon Camarena V - Last Filed: 06/01/18 16:03> Review Of Systems Constitutional: Negative for: Fever, Chills Cardiovascular: Negative for: Chest Pain, Palpitations Respiratory: Negative for: Cough, Shortness of Breath Gastrointestinal: Negative for: Nausea, Vomiting Musculoskeletal: Positive for: Other (Left knee pain and swelling) Neurological: Negative for: Weakness, Numbness <Tyrone King R - Last Filed: 06/01/18 06:26> Physical Exam - Physical Exam Appears: Non-toxic Skin: Normal Color, Warm, Dry Head: Atraumatic, Normacephalic Eye(s): bilateral: Normal Inspection Oral Mucosa: Moist Neck: Normal, Supple Chest: Symmetrical, No Tenderness Cardiovascular: Rhythm Regular Respiratory: Normal Breath Sounds, No Rales, No Rhonchi, No Wheezing Gastrointestinal/Abdominal: Soft, No Tenderness Back: No Vertebral Tenderness, No Paraspinal Tenderness Extremity: Other (Swelling and tenderness to left knee area, no deformity, slightly limited ROM due to pain) Pulses: Left Dorsalis Pedis: Normal, Right Dorsalis Pedis: Normal Neurological/Psych: Oriented x3, Normal Speech, Normal Motor, Normal Sensation Gait: Steady <Tyrone King R - Last Filed: 06/01/18 06:26> ED Course And Treatment - Laboratory Results Result Diagrams: 06/01/18 04:03 06/01/18 04:03 O2 Sat by Pulse Oximetry: 97 (Room air) Pulse Ox Interpretation: Normal Progress Note: CT knee and blood work ordered. Toradol administered. <Tyrone King - Last Filed: 06/01/18 06:26> - Laboratory Results Result Diagrams: 06/01/18 04:03 06/01/18 04:03 Lab Results: Total Bilirubin 0.4 mg/dL (0.2-1.3) 06/01/18 04:03 AST 24 U/L (17-59) 06/01/18 04:03 ALT 26 U/L (21-72) 06/01/18 04:03 Alkaline Phosphatase 126 U/L (38-126) D 06/01/18 04:03 Total Protein 7.3 g/dL (6.3-8.3) 06/01/18 04:03 Albumin 4.5 g/dL (3.5-5.0) 06/01/18 04:03 Globulin 2.8 gm/dL (2.2-3.9) 06/01/18 04:03 Albumin/Globulin Ratio 1.7 (1.0-2.1) 06/01/18 04:03 <Dylon Camarena V - Last Filed: 06/01/18 16:03> Medical Decision Making Medical Decision Making: Dr. Camarena Note: 63 year old male was endorsed to me by Dr. King at the end of his shift to follow up on CT scan. CT shows degenerative arthritis. The patient states having an appoint with orthopedics. Patient is stable for discharge home. Prescribed Ultram and Medrol Dose Pack. Patient advised to return to the ED if symptoms worsen. CT Scan FINDINGS: BONES: No evidence of acute displaced fracture nor dislocation. The osseous structures are intact.. Apparent on calcifications are present within the lateral joint space margin consistent with chondrocalcinosis. Rule out CPPD.. There is mild medial joint space narrowing with subchondral sclerosis and subchondral cystic changes.. Small marginal medial osteophytes are also present. Small anterior superior patella enthesophyte present. The outer cortices appear intact without destructive changes seen. SOFT TISSUES: There is a small suprapatellar joint effusion with an uncomplicated appearing large Booth cyst that measures approximately 5.4cm cc 3.1cm t x 2.9cm ap.. There also infiltration changes seen in the surrounding subcutaneous tissues. Note that the these changes likely related to either trauma or chronic arthritic changes. The possibility of superinfection cannot be completely excluded IMPRESSION: No evidence of acute displaced fracture nor dislocation. There are meniscal calcifications lateral joint space margin consistent with chondrocalcinosis. Rule CPPD mild degenerative osteoarthritis most notably affecting the medial compartment with joint space narrowing subchondral sclerosis and subchondral cystic changes. Small to medium-sized joint effusion with large Booth's cyst. Findings may be secondary to recent trauma or chronic arthritis; superinfection not excluded <Dylon Camarena V - Last Filed: 06/01/18 16:03> Disposition <Tyrone King - Last Filed: 06/01/18 06:26> Counseled Patient/Family Regarding: Studies Performed, Diagnosis, Need For Followup, Rx Given - Disposition Disposition Time: 09:00 <Dylon Camarena V - Last Filed: 06/01/18 16:03> - Disposition Disposition: HOME/ ROUTINE Condition: STABLE Additional Instructions: Follow up with your orthopedics doctor as directed Prescriptions: Methylprednisolone [Medrol Dose Pack (21 tabs)] 4 mg PO DAILY #21 mg Tramadol HCl [Ultram] 50 mg PO TID #12 tablet Instructions: Osteoarthritis Forms: [facility] (Citizen [place]), General Discharge Instructions - Clinical Impression Clinical Impression: Arthritis - Scribe Statement The provider has reviewed the documentation as recorded by the Scribe Braeden Carr All medical record entries made by the Scribe were at my direction and personally dictated by me. I have reviewed the chart and agree that the record accurately reflects my personal performance of the history, physical exam, medical decision making, and the department course for this patient. I have also personally directed, reviewed, and agree with the discharge instructions and disposition. <Tyrone King - Last Filed: 06/01/18 06:26> - Scribe Statement Berna Wynne for Dr. Camarena All medical record entries made by the Scribe were at my direction and personally dictated by me. I have reviewed the chart and agree that the record accurately reflects my personal performance of the history, physical exam, medical decision making, and the department course for this patient. I have also personally directed, reviewed, and agree with the discharge instructions and disposition. <Dylon Camarena V - Last Filed: 06/01/18 16:03>
--- NOTE | 2018-06-01 03:43 | C.PDOC ---
Chief Complaint (Nursing): Lower Extremity Problem/Injury Past Medical History Vital Signs: Last Vital Signs Temp 98.6 F 06/01/18 03:21 Pulse 93 H 06/01/18 03:21 Resp 16 06/01/18 03:21 BP 130/72 06/01/18 03:21 Pulse Ox 97 06/01/18 03:21 - Medical History PMH: Diabetes, HTN, Hyperlipidemia Denies: Chronic Kidney Disease Family History: States: Unknown Family Hx - Social History Hx Tobacco Use: Yes Hx Alcohol Use: No Hx Substance Use: No - Immunization History Hx Tetanus Toxoid Vaccination: Yes Hx Influenza Vaccination: No Hx Pneumococcal Vaccination: No ED Course And Treatment O2 Sat by Pulse Oximetry: 97 Disposition - Disposition
[2018-06-01 04:08] LABS: BASO % 0.4 % (0.0-2.0); EOS # 0.1 K/uL (0.0-0.7); LYMPH # 1.9 K/uL (1.0-4.3); LYMPH % 21.3 % (20.0-40.0); MEAN CELL VOLUME 94.1 fL (80.0-94.0); MEAN CORPUSCULAR HEMOGLOBIN 32.2 pg (27.0-31.0); MEAN CORPUSCULAR HGB CONC 34.2 g/dL (33.0-37.0); MEAN PLATELET VOLUME 7.8 fL (7.2-11.7); MONO # 1.1 K/uL (0.0-0.8); MONO % 12.1 % (0.0-10.0); NEUT # 5.7 K/uL (1.8-7.0); NEUT % 65.2 % (50.0-75.0); NRBC % 0.1 % (0.0-2.0); RBC 4.04 Mil/uL (4.40-5.90); RED CELL DISTRIBUTION WIDTH 12.6 % (11.5-14.5); WHITE BLOOD COUNT 8.7 K/uL (4.8-10.8)
[2018-06-01 04:22] LABS: ALB/GLOB RATIO 1.7 (1.0-2.1); ALBUMIN 4.5 g/dL (3.5-5.0); ALT/SGPT 26 U/L (21-72); AST/SGOT 24 U/L (17-59); BLOOD UREA NITROGEN 20 mg/dL (9-20); CALCIUM 9.2 mg/dl (8.6-10.4); GFR NON-AFRICAN AMERICAN > 60; URIC ACID 7.8 mg/dL (3.5-8.5)
[2018-06-01 07:03] VITALS: TEMP 99
[2018-06-01 09:05] VITALS: BP 111/70; PULSE 69; O2SAT 95
--- NOTE | 2018-06-01 09:53 | CT ---
Date of service: 06/01/2018 PROCEDURE: CT of the left knee HISTORY: Pain and swelling COMPARISON: None available. TECHNIQUE: Contiguous axial images of the left knee were obtained. Coronal and sagittal reformats were generated. Radiation dose: Total exam DLP = 347.44 mGy-cm. This CT exam was performed using one or more of the following dose reduction techniques: Automated exposure control, adjustment of the mA and/or kV according to patient size, and/or use of iterative reconstruction technique. FINDINGS: BONES: No evidence of acute displaced fracture nor dislocation. The osseous structures are intact.. Apparent on calcifications are present within the lateral joint space margin consistent with chondrocalcinosis. Rule out CPPD.. There is mild medial joint space narrowing with subchondral sclerosis and subchondral cystic changes.. Small marginal medial osteophytes are also present. Small anterior superior patella enthesophyte present. The outer cortices appear intact without destructive changes seen. SOFT TISSUES: There is a small suprapatellar joint effusion with an uncomplicated appearing large Booth cyst that measures approximately 5.4cm cc 3.1cm t x 2.9cm ap.. There also infiltration changes seen in the surrounding subcutaneous tissues. Note that the these changes likely related to either trauma or chronic arthritic changes. The possibility of superinfection cannot be completely excluded IMPRESSION: No evidence of acute displaced fracture nor dislocation. There are meniscal calcifications lateral joint space margin consistent with chondrocalcinosis. Rule CPPD mild degenerative osteoarthritis most notably affecting the medial compartment with joint space narrowing subchondral sclerosis and subchondral cystic changes. Small to medium-sized joint effusion with large Booth's cyst. Findings may be secondary to recent trauma or chronic arthritis; superinfection not excluded
== END 2018-06-01 09:05 | disposition home or self-care (01) ==
LOC: C.ER 03:11
DX: M17.12 Unilateral primary osteoarthritis, left knee (principal)
CPT/HCPCS: 73700; 80053; 84550; 85025; 96372; 99285; J1885

== ENCOUNTER 2018-09-07 07:49 | Outpatient (CLI) | payer OTHER | END 2018-09-07 07:50 | disposition home or self-care (01) | LOC: C.LAB 07:49 | DX: E11.8 Type 2 diabetes mellitus with unspecified complications (principal) ==